=== PATIENT | male | born 1960 | race African-American/Black ===

== ENCOUNTER 2017-10-11 03:22 | Emergency (ER) | payer SELFPAY ==
[2017-10-11] MEDS ORDERED: ASPIRIN 81 MG TABLET, CHEWABLE PO ONE (04:12)
[2017-10-11] MEDS ORDERED: ONDANSETRON 4 MG TAB.RAPDIS PO ONE (04:13)
--- NOTE | 2017-10-11 04:43 | RADIOLOGY REPORT (SQ) ---
EXAM DESCRIPTION: XR CHEST 1 VIEW COMPLETED DATE/TME: 10/11/2017 04:12 CLINICAL HISTORY: chest pain COMPARISON: None. FINDINGS: Single frontal view of the chest. The cardiomediastinal silhouette has normal size and contour. No consolidation, pneumothorax, or pleural effusion. Degenerative change of the spine. No acute osseous abnormality identified. Upper abdominal soft tissues are unremarkable. Left-sided calcified granuloma. IMPRESSION: 1. No acute pulmonary process identified.
--- NOTE | 2017-10-11 04:57 | ER Document Report ---
ED General - General TRAVEL OUTSIDE OF THE [place] IN LAST 30 DAYS: No <STANISLAV ASHLEY - Last Filed: 10/11/17 07:09> <BENSON BROWNE - Last Filed: 10/11/17 09:02> - General Chief Complaint: Chest Pain Stated Complaint: CHEST PAIN Time Seen by Provider: 10/11/17 04:04 Notes: Patient is a 56 year old male that comes emergency department for chief complaint of upper abdominal pain and chest pain. He states that symptoms started last night about 8 pm, he felt nauseated, he vomited, he had pain in his upper abdomen, afterwards he started feeling pain in his left upper chest and he became concerned and came in to be evaluated. He denies current upper abdominal pain but he does report some nausea. He denies shortness of breath, fever, flank pain. He states he takes no daily medications. He denies history of DC or any cardiac history, only reported history is a history of pancreatic abscess with drainage and a history of bilateral cyst abscess with drainage. ( STANISLAV ASHLEY) - Related Data Allergies/Adverse Reactions: No Known Allergies Allergy (Verified 10/11/17 07:16) Past Medical History - General Information source: Patient - Social History Smoking Status: Never Smoker Frequency of alcohol use: None Drug Abuse: None Lives with: Family Family History: Reviewed & Not Pertinent GI Medical History: Reports: Hx Pancreatitis Past Surgical History: Reports: Other - Pancreatic abscess removal - Immunizations Hx Diphtheria, Pertussis, Tetanus Vaccination: Yes <STANISLAV ASHLEY - Last Filed: 10/11/17 07:09> Review of Systems - Review of Systems Constitutional: No symptoms reported EENT: No symptoms reported Cardiovascular: See HPI Respiratory: No symptoms reported Gastrointestinal: See HPI Genitourinary: No symptoms reported Male Genitourinary: No symptoms reported Musculoskeletal: No symptoms reported Skin: No symptoms reported Hematologic/Lymphatic: No symptoms reported Neurological/Psychological: No symptoms reported <STANISLAV ASHLEY - Last Filed: 10/11/17 07:09> Physical Exam <STANISLAV ASHLEY - Last Filed: 10/11/17 07:09> <BENSON BROWNE - Last Filed: 10/11/17 09:02> - Vital signs Vitals: Temp Pulse Resp BP Pulse Ox 98.5 F 99 18 110/74 97 10/11/17 03:38 10/11/17 03:38 10/11/17 03:38 10/11/17 03:38 10/11/17 03:38 - Notes Notes: GENERAL: Alert, interacts well. No acute distress. HEAD: Normocephalic, atraumatic. EYES: Pupils equal, round, and reactive to light. Extraocular movements intact. ENT: Oral mucosa moist, tongue midline. NECK: Full range of motion. Supple. Trachea midline. LUNGS: Clear to auscultation bilaterally, no wheezes, rales, or rhonchi. No respiratory distress. HEART: Regular rate and rhythm. No murmur ABDOMEN: Mild generalized tenderness in the upper abdomen, nonspecific, no guarding, lower abdomen is benign. Old scar over the mid upper abdomen. EXTREMITIES: Moves all 4 extremities spontaneously. No edema, normal radial and dorsalis pedis pulses bilaterally. No cyanosis. BACK: no cervical, thoracic, lumbar midline tenderness. No saddle anesthesia, normal distal neurovascular exam. NEUROLOGICAL: Alert and oriented x3. Normal speech. [cranial nerves II through XII grossly intact]. PSYCH: Normal affect, normal mood. SKIN: Warm, dry, normal turgor. No rashes or lesions noted. Area over the pilonidal cyst and rectal area unremarkable with no induration, fluctuance, erythema, or noted tenderness. (STANISLAV ASHLEY) Course - Laboratory Result Diagrams: 10/11/17 04:25 10/11/17 04:25 <STANISLAV ASHLEY - Last Filed: 10/11/17 07:09> - Laboratory Result Diagrams: 10/11/17 04:25 10/11/17 04:25 <BENSON BROWNE - Last Filed: 10/11/17 09:02> - Re-evaluation Re-evalutation: EKG sinus rhythm with no T-wave inversions or ST segment changes in consecutive leads. Chest x-ray unremarkable. CBC unremarkable. CMP shows elevated direct bilirubin, normal LFTs, normal alk phos. Lipase is normal. Chest x-ray is normal. Discussed with patient, he states his nausea is better but he still is having pains mainly in his left upper chest. Request medication for this, he was provided with this. We will perform ultrasound to further evaluate his symptoms , second troponin still pending. (STANISLAV ASHLEY) 10/11/17 08:59 second troponin negative, right upper quadrant ultrasound negative. (BENSON BROWNE) - Vital Signs Vital signs: Temp Pulse Resp BP Pulse Ox 98.5 F 99 15 99/63 L 96 10/11/17 03:38 10/11/17 03:38 10/11/17 08:01 10/11/17 08:01 10/11/17 08:01 - Laboratory Laboratory results interpreted by me: 10/11/17 10/11/17 04:25 04:25 Plt Count 135 L Glucose 259 H Total Bilirubin 2.7 H Creatine Kinase 396 H Discharge <STANISLAV ASHLEY - Last Filed: 10/11/17 07:09> <BENSON BROWNE - Last Filed: 10/11/17 09:02> - Discharge Clinical Impression: Abdominal pain Qualifiers: Abdominal location: generalized Qualified Code(s): R10.84 - Generalized abdominal pain Chest pain Qualifiers: Chest pain type: unspecified Qualified Code(s): R07.9 - Chest pain, unspecified Condition: Stable Disposition: HOME, SELF-CARE Additional Instructions: Return immediately for any new or worsening symptoms. Follow up with primary care provider, call tomorrow to make followup appointment.
[2017-10-11 05:04] LABS: ABSOLUTE EOSINOPHILS # (AUTO) 0.1 10^3/uL (0.0-0.6); ABSOLUTE LYMPHOCYTES (AUTO) 2.5 10^3/uL (0.5-4.7); ABSOLUTE MONOCYTES (AUTO) 0.6 10^3/uL (0.1-1.4); ABSOLUTE NEUT (AUTO) 4.7 10^3/uL (1.7-8.2); BASOPHILS % (AUTO) 0.4 % (0-2); EOSINOPHILS % (AUTO) 1.7 % (0-6); HEMATOCRIT 43.6 % (37.9-51.0); HEMOGLOBIN 15.5 g/dL (13.5-17.0); LYMPHOCYTES % (AUTO) 31.6 % (13-45); MEAN CORPUSCULAR HEMOGLOBIN 30.9 pg (27.0-33.4); MEAN CORPUSCULAR HGB CONC 35.6 g/dL (32.0-36.0); MEAN CORPUSCULAR VOLUME 87 fl (80-97); MONOCYTES % (AUTO) 7.1 % (3-13); PLATELET COUNT 135 10^3/uL (150-450); RED BLOOD COUNT 5.02 10^6/uL (4.35-5.55); RED CELL DISTRIBUTION WIDTH 13.5 % (11.5-14.0); SEGMENTED NEUTROPHILS % (AUTO) 59.2 % (42-78); TOTAL CELLS COUNTED % (AUTO) 100 %; WHITE BLOOD COUNT 7.9 10^3/uL (4.0-10.5)
[2017-10-11 05:28] LABS: ALANINE AMINOTRANSFERASE 27 U/L (21-72); ALBUMIN 4.1 g/dL (3.5-5.0); ALKALINE PHOSPHATASE 87 U/L (38-126); ANION GAP 14 (5-19); ASPARTATE AMINO TRANSFERASE 25 U/L (17-59); BILIRUBIN,DIRECT 0.4 mg/dL (0.0-0.4); BILIRUBIN,TOTAL 2.7 mg/dL (0.2-1.3); BLOOD UREA NITROGEN 14 mg/dL (7-20); CALCIUM 9.3 mg/dL (8.4-10.2); CARBON DIOXIDE 25 mmol/L (22-30); CHLORIDE 102 mmol/L (98-107); CREATINE KINASE 396 U/L (55-170); GLUCOSE 259 mg/dL (75-110); LIPASE 68.8 U/L (23-300); POTASSIUM 3.8 mmol/L (3.6-5.0); SODIUM 141.1 mmol/L (137-145)
[2017-10-11 05:35] LABS: CREATINE KINASE MB 2.42 ng/mL (<4.55)
[2017-10-11 05:41] LABS: TROPONIN I < 0.012 ng/mL
[2017-10-11] MEDS ORDERED: MORPHINE SULFATE IR 15 MG TABLET PO ONE (05:55)
--- NOTE | 2017-10-11 07:44 | EKG REPORT ---
SEVERITY:- ABNORMAL ECG - SINUS RHYTHM RIGHT VENTRICULAR HYPERTROPHY : Confirmed by: Marcos Vance MD 11-Oct-2017 07:43:28
--- NOTE | 2017-10-11 08:23 | RADIOLOGY REPORT (SQ) ---
EXAM DESCRIPTION: U/S ABDOMEN LIMITED W/O DOP COMPLETED DATE/TIME: 10/11/2017 7:30 am REASON FOR STUDY: upper abd pain, vomited, elevated bili COMPARISON: None. TECHNIQUE: Dynamic and static grayscale images acquired of the abdomen and recorded on PACS. Additio nal selected color Doppler and spectral images recorded. LIMITATIONS: None. FINDINGS: PANCREAS: No masses. Visualized pancreatic duct normal caliber. LIVER: Normal size. 15.9 cm. Fatty infiltration. No masses. LIVER VASCULATURE: Normal directional flow of the main portal vein and hepatic veins. GALLBLADDER: Surgically absent. ULTRASOUND-DETECTED MIN'S SIGN: Negative. INTRAHEPATIC DUCTS AND COMMON DUCT: Common bile duct 4.6 mm. INFERIOR VENA CAVA: Normal flow. AORTA: No aneurysm. RIGHT KIDNEY: Normal size. Normal echogenicity. No solid or suspicious masses. No hydronephrosis. No calcifications. PERITONEAL AND RIGHT PLEURAL SPACE: No ascites or effusions. OTHER: No other significant findings. IMPRESSION: Fatty liver. Status post cholecystectomy. TECHNICAL DOCUMENTATION: JOB ID: [id number] [employer]- All Rights Reserved Reading location - IP/workstation name: [email or web address]
[2017-10-11] MEDS ORDERED: SUCRALFATE 1 GM TABLET PO ONE (09:06)
[2017-10-11] MEDS ORDERED: FAMOTIDINE 20 MG TABLET PO ONE (09:06)
[2017-10-11 09:22] VITALS: BP 108/70
== END 2017-10-11 09:30 | disposition home or self-care (01) ==
LOC: ER 03:22
DX: R10.84 Generalized abdominal pain (principal); R07.9 Chest pain, unspecified; R11.2 Nausea with vomiting, unspecified
CPT/HCPCS: 93005; 99285; 36415; 82553; 82550; 83690; 85025; 80053; 84484; 71045; 76705; 93010; S0119